=== PATIENT | female | born 1955 | race Caucasian/White ===

== ENCOUNTER 2020-07-09 17:28 | Inpatient (IN) ==
[2020-07-09 18:16] LABS: Basophils # 0.1 K/mcL (0.0-0.2); Basophils % 0.7 %; Eosinophils # 0.1 K/mcL (0.0-0.6); Eosinophils % 0.7 %; Hemoglobin 14.3 g/dL (11.5-15.4); Immature Granulocytes % 0.4 % (0-4); Lymphocytes # 1.8 K/mcL (0.6-4.6); Lymphocytes % 23.7 %; Mean Corpuscular HGB Conc 31.1 g/dL (31.6-35.5); Mean Corpuscular Hemoglobin 30.9 pg (28.0-33.3); Mean Corpuscular Volume 99.4 fL (83.0-100.0); Mean Platelet Volume 12.5 fL (9.4-12.4); Monocytes # 0.5 K/mcL (0.0-1.3); Monocytes % 6.9 %; Neutrophils # 5.2 K/mcL (1.6-8.9); Platelet Count 148 K/mcL (140-400); Red Blood Count 4.63 M/mcL (3.82-4.97); Red Cell Distribution Width 12.8 % (11.5-14.5); Segmented Neutrophils % 67.6 %; White Blood Count 7.6 K/mcL (4.3-11.1)
[2020-07-09 18:32] LABS: Acetaminophen < 10 mcg/mL (10-20); Alanine Aminotransferase 15 Units/L (7-52); Albumin 4.7 g/dL (3.5-5.7); Albumin/Globulin Ratio 1.9 (1.1-2.2); Alkaline Phosphatase 86 Units/L (34-104); Aspartate Amino Transferase 18 Units/L (13-39); BUN/Creatinine Ratio 20 (6-26); Bilirubin,Indirect 0.3 mg/dL (0.0-1.0); Bilirubin,Total 0.3 mg/dL (0.3-1.0); Blood Urea Nitrogen 21 mg/dL (8-23); Carbon Dioxide 24 mEq/L (23-29); Chloride 110 mEq/L (98-107); Cholesterol 174 mg/dL (< 200); Ethanol < 10 mg/dL (Less than 10); Globulin 2.5 g/dL (2.4-3.5); Glucose 93 mg/dL (70-105); HDL Cholesterol 58 mg/dL (40-59); LDL Cholesterol,Calculated 85 mg/dL (< 100); Osmolality,Calculated 299 (280-300); Potassium 4.1 mEq/L (3.5-5.1); Salicylate < 2.5 mg/dL (15.0-30.0); Sodium 143 mEq/L (136-145); Total Protein 7.2 g/dL (6.4-8.9); Triglycerides 156 mg/dL (< 150); eGFR For African Americans > 60 (> 60); eGFR For Non-African Americans 52 (> 60)
[2020-07-09 18:44] LABS: Thyroid Stimulating Hormone 2.754 mcIU/mL (0.340-5.600)
[2020-07-09 18:54] LABS: Estimated Average Glucose 100 mg/dl; Hemoglobin A1C 5.1 %
[2020-07-09 19:15] LABS: Bacteria,Urine Few per hpf (None-Few); Bilirubin,Urine Negative (Negative); Blood,Urine Negative (Negative); Clarity,Urine Clear (Clear); Color,Urine Colorless (Yellow); Glucose,Urine (UA) Normal (Normal); Ketones,Urine Negative (Negative); Leukocyte Esterase,Urine Small (Negative); Mucus,Urine Few per lpf (None-Few); Nitrite,Urine Negative (Negative); Protein,Urine Negative (Neg-Trace); RBC,Urine 0-3 per hpf (0-3); Specific Gravity,Urine 1.009 (1.010-1.025); Urobilinogen,Urine Normal (Normal)
[2020-07-09 19:24] LABS: Amphetamine Screen,Urine Negative ng/mL (Cutoff=1000); Barbiturate Screen,Urine Negative ng/mL (Cutoff=200); Benzodiazepines Screen,Urine Negative ng/mL (Cutoff=200); Cannabinoid Screen,Urine Negative ng/mL (Cutoff = 50); Cocaine Screen,Urine Negative ng/mL (Cutoff= 300); Opiate Screen,Urine Negative ng/mL (Cutoff=300); Phencyclidine Screen,Urine Negative ng/mL (Cutoff=25)
[2020-07-10] MEDS ORDERED: Haloperidol Lactate 5 MG/ML VIAL IM PRN (00:12)
[2020-07-10] MEDS ORDERED: *HR* LORazepam 1 MG TABLET PO PRN (00:12)
[2020-07-10] MEDS ORDERED: Acetaminophen 325 MG TABLET PO PRN (00:12)
[2020-07-10] MEDS ORDERED: hydrOXYzine pamoate 25 MG CAPSULE PO PRN (00:12)
[2020-07-10] MEDS ORDERED: MOM Conc 10 ML UD.LIQ PO PRN (00:12)
[2020-07-10] MEDS ORDERED: *HR* LORazepam 2 MG/ML VIAL IM PRN (00:12)
[2020-07-10] MEDS ORDERED: haloperidoL 5 MG TABLET PO PRN (00:12)
[2020-07-10 00:43] LABS: Adenovirus Not Detected (Not Detect); Bordetella Pertussis Not Detected (Not Detect); Chlamydophila pneumoniae Not Detected (Not Detect); Coronavirus 229E Not Detected (Not Detect); Coronavirus HKU1 Not Detected (Not Detect); Coronavirus NL63 Not Detected (Not Detect); Coronavirus OC43 Not Detected (Not Detect); Human Metapneumovirus Not Detected (Not Detect); Human Rhinovirus/Enterovirus Not Detected (Not Detect); Influenza A Subtype 2009 H1 Not Detected (Not Detect); Influenza B Not Detected (Not Detect); Mycoplasma pneumoniae Not Detected (Not Detect); Parainfluenza Virus 1 Not Detected (Not Detect); Parainfluenza Virus 2 Not Detected (Not Detect); Parainfluenza Virus 3 Not Detected (Not Detect); Parainfluenza Virus 4 Not Detected (Not Detect); Respiratory Syncytial Virus Not Detected (Not Detect); SARS-CoV-2 Not Detected (Not Detect)
[2020-07-10] MEDS: traZODone 50 MG TABLET PO PRN ×2 (01:50→21:44)
[2020-07-10] MEDS: cloZAPine 100 MG TABLET PO SCH ×2 (01:50→21:44)
[2020-07-11] MEDS ORDERED: NON-FORMULARY MEDICATION 1 EACH EACH (Omega-3/Dha/Epa/Fish Oil [Fish Oil 1,000 Mg Softgel] PO SCH (09:00)
[2020-07-11] MEDS: Cholecalciferol (D-3) 1,000 UNIT (25MCG) TABLET PO SCH (09:41)
[2020-07-11] MEDS: Loratadine 10 MG TABLET PO SCH (09:41)
[2020-07-11] MEDS ORDERED: traZODone 50 MG TABLET PO PRN (13:33)
[2020-07-11] MEDS: Mag Hydrox/Al Hydrox/Simeth 30 ML UDC PO PRN (16:07)
[2020-07-11] MEDS: cloZAPine 100 MG TABLET PO SCH (20:31)
[2020-07-12] MEDS: Loratadine 10 MG TABLET PO SCH (09:28)
[2020-07-12] MEDS: Cholecalciferol (D-3) 1,000 UNIT (25MCG) TABLET PO SCH (09:28)
[2020-07-12 09:46] VITALS: BP 128/86
[2020-07-12] MEDS: Mag Hydrox/Al Hydrox/Simeth 30 ML UDC PO PRN (15:26)
== END 2020-07-12 18:10 | disposition home or self-care (01) | DRG 750 ==
LOC: EMEROOARM 17:28 → 1ANU 07-10 00:55
PROVIDERS: ADMIT Psychiatry & Neurology Forensic Psychiatry; ATTEND Psychiatry & Neurology Forensic Psychiatry

== ENCOUNTER 2020-10-04 06:52 | Inpatient (IN) ==
[2020-10-04] MEDS ORDERED: Lidocaine -MPF 2% 2 ML VIAL ONE (06:58)
[2020-10-04] MEDS ORDERED: *HR* Succinylcholine 200 MG/10 ML VIAL IVP ONE (06:58)
[2020-10-04] MEDS ORDERED: Ringers Solution, Lactated 1,000 ML IVC SCH (07:15)
[2020-10-04] MEDS ORDERED: EPHEDrine 50 MG/ML VIAL ONE (08:12)
[2020-10-04] MEDS ORDERED: 0.9 % Sodium Chloride 1,000 ML IVC SCH (11:42)
[2020-10-04] MEDS ORDERED: Naloxone 0.4 MG/ML INJ IVP PRN (11:42)
[2020-10-04] MEDS ORDERED: Ondansetron 4 MG/2 ML VIAL IVP PRN (11:42)
[2020-10-04] MEDS: Methylphenidate HCl 5 MG TABLET PO SCH (12:44)
[2020-10-04] MEDS: Loratadine 10 MG TABLET PO SCH (12:45)
[2020-10-04] MEDS: Pantoprazole 40 MG VIAL IVP SCH (12:46)
[2020-10-05 01:18] LABS: Basophils % 0.3 %; Eosinophils # 0.1 K/mcL (0.0-0.6); Eosinophils % 0.6 %; Hematocrit 40.4 % (35.3-44.9); Hemoglobin 12.9 g/dL (11.5-15.4); Immature Granulocytes % 0.3 % (0-4); Lymphocytes # 1.8 K/mcL (0.6-4.6); Mean Corpuscular HGB Conc 31.9 g/dL (31.6-35.5); Mean Corpuscular Hemoglobin 31.6 pg (28.0-33.3); Mean Platelet Volume 12.4 fL (9.4-12.4); Monocytes # 0.7 K/mcL (0.0-1.3); Monocytes % 5.5 %; Neutrophils # 9.3 K/mcL (1.6-8.9); Platelet Count 122 K/mcL (140-400); Red Blood Count 4.08 M/mcL (3.82-4.97); Red Cell Distribution Width 12.8 % (11.5-14.5); Segmented Neutrophils % 78.3 %; White Blood Count 11.8 K/mcL (4.3-11.1)
[2020-10-05 01:31] LABS: BUN/Creatinine Ratio 11 (6-26); Blood Urea Nitrogen 10 mg/dL (8-23); Calcium 8.9 mg/dL (8.6-10.3); Carbon Dioxide 23 mEq/L (23-29); Chloride 112 mEq/L (98-107); Glucose 99 mg/dL (70-105); Osmolality,Calculated 293 (280-300); Potassium 3.3 mEq/L (3.5-5.1); Sodium 142 mEq/L (136-145); eGFR For African Americans > 60 (> 60); eGFR For Non-African Americans > 60 (> 60)
[2020-10-05 01:40] LABS: Prothrombin Time 11.9 Seconds (9.4-12.1)
[2020-10-05] MEDS: Pantoprazole 40 MG VIAL IVP SCH (08:51)
[2020-10-05] MEDS: Loratadine 10 MG TABLET PO SCH (08:52)
[2020-10-05] MEDS: Methylphenidate HCl 5 MG TABLET PO SCH (08:52)
[2020-10-05] MEDS: 0.9 % Sodium Chloride 1,000 ML IVC SCH (09:00)
[2020-10-05] MEDS ORDERED: *HR* Propofol 200 MG/20 ML VIAL IVP ONE (17:16)
[2020-10-05] MEDS ORDERED: Ondansetron 4 MG/2 ML VIAL ONE (17:16)
[2020-10-05] MEDS ORDERED: Lidocaine -MPF 2% 2 ML VIAL ONE (17:16)
[2020-10-05] MEDS ORDERED: *HR* Midazolam HCl 2 MG/2 ML VIAL ONE (17:16)
[2020-10-05] MEDS ORDERED: *HR* Rocuronium Bromide 50 MG/5 ML VIAL ONE (17:16)
[2020-10-05] MEDS ORDERED: *HR* HYDROmorphone PF 0.5 MG/0.5 ML SYRINGE IVP PRN (17:24)
[2020-10-05] MEDS ORDERED: Ondansetron 4 MG/2 ML VIAL IVP PRN ×2 (17:24→21:30)
[2020-10-05] MEDS ORDERED: Albumin Human 5% 25.0 GM/500 ML IV.SOLN ONE (17:28)
[2020-10-05] MEDS ORDERED: *HR* FentaNYL (PF) 250 MCG/5 ML VIAL ONE (17:28)
[2020-10-05] MEDS ORDERED: Lacri-Lube 3.5 GM TUBE ONE (18:10)
[2020-10-05] MEDS ORDERED: 0.9 % Sodium Chloride 1,000 ML IVC SCH (21:30)
[2020-10-05] MEDS ORDERED: Naloxone 0.4 MG/ML INJ IVP PRN (21:30)
[2020-10-06] MEDS: Acetaminophen IV 1,000 MG/100 ML BAG IVPB SCH ×4 (00:15→18:01)
[2020-10-06] MEDS ORDERED: Morphine Sulfate Oral CONC 10 MG/0.5 ML ORAL.SYG SL PRN (00:31)
[2020-10-06] MEDS: Pantoprazole 40 MG VIAL IVP SCH (08:09)
[2020-10-06] MEDS: Loratadine 10 MG TABLET PO SCH (08:10)
[2020-10-06] MEDS: Methylphenidate HCl 5 MG TABLET PO SCH (08:10)
[2020-10-06] MEDS: 0.9 % Sodium Chloride 1,000 ML IVC SCH (09:59)
[2020-10-06 12:58] LABS: Basophils % 0.2 %; Eosinophils % 0.4 %; Hematocrit 38.8 % (35.3-44.9); Hemoglobin 12.5 g/dL (11.5-15.4); Immature Granulocytes % 0.4 % (0-4); Lymphocytes # 1.6 K/mcL (0.6-4.6); Lymphocytes % 15.1 %; Mean Corpuscular HGB Conc 32.2 g/dL (31.6-35.5); Mean Corpuscular Hemoglobin 31.9 pg (28.0-33.3); Mean Platelet Volume 11.9 fL (9.4-12.4); Monocytes # 0.7 K/mcL (0.0-1.3); Monocytes % 6.4 %; Neutrophils # 8.3 K/mcL (1.6-8.9); Platelet Count 112 K/mcL (140-400); Red Blood Count 3.92 M/mcL (3.82-4.97); Red Cell Distribution Width 12.9 % (11.5-14.5); Segmented Neutrophils % 77.5 %; White Blood Count 10.7 K/mcL (4.3-11.1)
[2020-10-06 13:20] LABS: BUN/Creatinine Ratio 6 (6-26); Blood Urea Nitrogen 5 mg/dL (8-23); Calcium 8.2 mg/dL (8.6-10.3); Carbon Dioxide 23 mEq/L (23-29); Chloride 112 mEq/L (98-107); Glucose 71 mg/dL (70-105); Osmolality,Calculated 292 (280-300); Potassium 3.5 mEq/L (3.5-5.1); Sodium 143 mEq/L (136-145); eGFR For African Americans > 60 (> 60); eGFR For Non-African Americans > 60 (> 60)
[2020-10-06 13:44] LABS: Platelet Estimate Slight Decrease (Normal)
[2020-10-07] MEDS: Acetaminophen IV 1,000 MG/100 ML BAG IVPB SCH ×5 (01:23→23:12)
[2020-10-07 01:27] LABS: Basophils % 0.3 %; Eosinophils # 0.1 K/mcL (0.0-0.6); Eosinophils % 0.7 %; Hematocrit 35.1 % (35.3-44.9); Hemoglobin 11.4 g/dL (11.5-15.4); Immature Granulocytes % 0.2 % (0-4); Lymphocytes # 1.5 K/mcL (0.6-4.6); Lymphocytes % 16.8 %; Mean Corpuscular HGB Conc 32.5 g/dL (31.6-35.5); Mean Corpuscular Volume 98.6 fL (83.0-100.0); Mean Platelet Volume 12.6 fL (9.4-12.4); Monocytes # 0.6 K/mcL (0.0-1.3); Monocytes % 7.4 %; Neutrophils # 6.4 K/mcL (1.6-8.9); Platelet Count 107 K/mcL (140-400); Red Blood Count 3.56 M/mcL (3.82-4.97); Red Cell Distribution Width 12.8 % (11.5-14.5); Segmented Neutrophils % 74.6 %; White Blood Count 8.6 K/mcL (4.3-11.1)
[2020-10-07 01:50] LABS: BUN/Creatinine Ratio 7 (6-26); Blood Urea Nitrogen 5 mg/dL (8-23); Calcium 8.1 mg/dL (8.6-10.3); Carbon Dioxide 23 mEq/L (23-29); Chloride 113 mEq/L (98-107); Glucose 80 mg/dL (70-105); Magnesium 1.6 mg/dL (1.6-2.6); Osmolality,Calculated 292 (280-300); Potassium 3.3 mEq/L (3.5-5.1); Sodium 143 mEq/L (136-145); eGFR For African Americans > 60 (> 60); eGFR For Non-African Americans > 60 (> 60)
[2020-10-07] MEDS: Piperacillin/Tazobactam 3.375 GM in 0.9 % Sodium Chloride Mini Bag 100 ML IVPB SCH ×4 (03:11→23:10)
[2020-10-07] MEDS: 0.9 % Sodium Chloride 1,000 ML IVC SCH ×2 (07:39→09:04)
[2020-10-07] MEDS: Loratadine 10 MG TABLET PO SCH (07:42)
[2020-10-07] MEDS: Methylphenidate HCl 5 MG TABLET PO SCH (07:42)
[2020-10-07] MEDS: Pantoprazole 40 MG VIAL IVP SCH (07:42)
[2020-10-07] MEDS ORDERED: Potassium Phosphate 44 MEQ in 0.9 % Sodium Chloride 250 ML IVPB ONE (07:48)
[2020-10-07] MEDS ORDERED: Cyanocobalamin (B-12) 1,000 MCG TABLET PO SCH (11:45)
[2020-10-07] MEDS: Metoclopramide 10 MG/2 ML VIAL IVP SCH ×2 (18:07→23:10)
[2020-10-07] MEDS: *HR* Heparin 5,000 UNIT/ML VIAL SQ SCH (18:08)
[2020-10-07] MEDS: cloZAPine 100 MG TABLET PO SCH (19:50)
[2020-10-08 03:22] LABS: Basophils % 0.4 %; Immature Granulocytes % 0.3 % (0-4)
[2020-10-08 03:23] LABS: Eosinophils # 0.1 K/mcL (0.0-0.6); Hematocrit 31.6 % (35.3-44.9); Hemoglobin 10.6 g/dL (11.5-15.4); Immature Platelets 7.9 % (1.1-6.1); Lymphocytes # 1.6 K/mcL (0.6-4.6); Lymphocytes % 21.2 %; Mean Corpuscular HGB Conc 33.5 g/dL (31.6-35.5); Mean Corpuscular Hemoglobin 32.6 pg (28.0-33.3); Mean Corpuscular Volume 97.2 fL (83.0-100.0); Mean Platelet Volume 12.9 fL (9.4-12.4); Monocytes # 0.6 K/mcL (0.0-1.3); Monocytes % 7.9 %; Neutrophils # 5.1 K/mcL (1.6-8.9); Platelet Count 101 K/mcL (140-400); Red Blood Count 3.25 M/mcL (3.82-4.97); Red Cell Distribution Width 12.7 % (11.5-14.5); Segmented Neutrophils % 69.2 %; White Blood Count 7.3 K/mcL (4.3-11.1)
[2020-10-08 03:48] LABS: BUN/Creatinine Ratio 8 (6-26); Blood Urea Nitrogen 6 mg/dL (8-23); Calcium 8.5 mg/dL (8.6-10.3); Carbon Dioxide 21 mEq/L (23-29); Chloride 113 mEq/L (98-107); Glucose 72 mg/dL (70-105); Magnesium 1.6 mg/dL (1.6-2.6); Osmolality,Calculated 290 (280-300); Phosphorous 2.3 mg/dL (2.7-4.5); Potassium 3.3 mEq/L (3.5-5.1); Sodium 142 mEq/L (136-145); eGFR For African Americans > 60 (> 60); eGFR For Non-African Americans > 60 (> 60)
[2020-10-08] MEDS: *HR* Heparin 5,000 UNIT/ML VIAL SQ SCH ×2 (05:24→17:16)
[2020-10-08] MEDS: Metoclopramide 10 MG/2 ML VIAL IVP SCH (05:24)
[2020-10-08] MEDS: Acetaminophen IV 1,000 MG/100 ML BAG IVPB SCH (05:25)
[2020-10-08] MEDS: 0.9 % Sodium Chloride 1,000 ML IVC SCH (05:25)
[2020-10-08] MEDS: Pantoprazole 40 MG VIAL IVP SCH (07:40)
[2020-10-08] MEDS: Piperacillin/Tazobactam 3.375 GM in 0.9 % Sodium Chloride Mini Bag 100 ML IVPB SCH ×2 (07:40→17:14)
[2020-10-08] MEDS: Methylphenidate HCl 5 MG TABLET PO SCH (07:41)
[2020-10-08] MEDS: Loratadine 10 MG TABLET PO SCH (07:42)
[2020-10-08] MEDS ORDERED: Acetaminophen 325 MG TABLET PO PRN (08:18)
[2020-10-08] MEDS: Potassium Chloride Elixir 20 MEQ/15 ML UDC PO SCH ×2 (10:08→20:06)
[2020-10-08] MEDS: Ibuprofen 800 MG TABLET PO SCH ×2 (10:10→16:37)
[2020-10-08] MEDS: *HR* OxyCODONE Immed Rel 5 MG TABLET PO PRN ×2 (17:56→23:56)
[2020-10-08] MEDS: Famotidine 20 MG TABLET PO SCH (20:05)
[2020-10-08] MEDS: cloZAPine 100 MG TABLET PO SCH (20:06)
[2020-10-08 22:31] VITALS: O2SAT 95
[2020-10-09] MEDS: Ibuprofen 800 MG TABLET PO SCH ×2 (00:30→10:03)
[2020-10-09] MEDS: *HR* Heparin 5,000 UNIT/ML VIAL SQ SCH (06:06)
[2020-10-09] MEDS: *HR* OxyCODONE Immed Rel 5 MG TABLET PO PRN (06:06)
[2020-10-09 06:11] LABS: BUN/Creatinine Ratio 9 (6-26); Blood Urea Nitrogen 7 mg/dL (8-23); Carbon Dioxide 24 mEq/L (23-29); Chloride 117 mEq/L (98-107); Glucose 91 mg/dL (70-105); Magnesium 1.8 mg/dL (1.6-2.6); Osmolality,Calculated 302 (280-300); Phosphorous 3.4 mg/dL (2.7-4.5); Potassium 4.7 mEq/L (3.5-5.1); Sodium 147 mEq/L (136-145); eGFR For African Americans > 60 (> 60); eGFR For Non-African Americans > 60 (> 60)
[2020-10-09 06:22] VITALS: BP 142/81; PULSE 60; TEMP 97.9
[2020-10-09] MEDS: Methylphenidate HCl 5 MG TABLET PO SCH (07:16)
[2020-10-09] MEDS: Potassium Chloride Elixir 20 MEQ/15 ML UDC PO SCH (07:17)
[2020-10-09] MEDS: Loratadine 10 MG TABLET PO SCH (07:17)
[2020-10-09] MEDS: Famotidine 20 MG TABLET PO SCH (07:17)
== END 2020-10-09 11:45 | disposition home health service (06) | DRG 231 ==
LOC: SAMDAY 06:52 → 3ANU 10:54
PROVIDERS: ADMIT Surgery; ATTEND Surgery
PROC: ENDOCBX (2020-10-04 07:45)